=== PATIENT | female | born 1965 | race Caucasian/White ===

== ENCOUNTER 2020-10-27 12:17 | Emergency (ER) | payer BC ==
[2020-10-27] MEDS ORDERED: Ibuprofen 800 MG TAB ONE (13:14)
--- NOTE | 2020-10-27 13:29 | RAD ---
LEFT HIP 2 VIEWS: HISTORY: Fall. COMPARISON: None. FINDINGS: Small left acetabular osteophyte formation. The left obturator ring is intact. Left SI joint is int act. Proximal femur is without fracture. IMPRESSION: No acute displaced fracture. Mild degenerative changes. If the patient is acutely unable to bear weight, CT would be recommended. POS: HOME
--- NOTE | 2020-10-27 14:00 | CT ---
CT pelvis noncontrast HISTORY: Fall. Left hip injury. FINDINGS: Mild osteoarthritic changes of each hip. Cortex is intact. Femoral head contours are mainta ined. Small bone islands at the left femoral head. No acute fracture or dislocation. Within the partially visualized retroperitoneum, there is ill-defined fat stranding, most pronounced on the right superiormost images. Nonenlarged, nonspecific lymph nodes are also evident within the retroperitoneum. IMPRESSION : No acute osseous abnormalities are demonstrated. Subtle findings of inflammation within the partially visualized lower retroperitoneum: right lower qu adrant and aortoiliac levels. Correlate for causes of retroperitoneal inflammation.
== END 2020-10-27 14:25 | disposition home or self-care (01) ==
LOC: MADERS 12:17
DX: S80.01XA Contusion of right knee, initial encounter (principal); M25.552 Pain in left hip; E11.9 Type 2 diabetes mellitus without complications; F17.210 Nicotine dependence, cigarettes, uncomplicated; Z79.84 Long term (current) use of oral hypoglycemic drugs; Z79.899 Other long term (current) drug therapy; W01.0XXA Fall on same level from slipping, tripping and stumbling without subsequent striking against object, initial encounter
CPT/HCPCS: 72192

== ENCOUNTER 2021-12-06 20:58 | Emergency (ER) | payer BC, SELFPAY ==
[2021-12-07] MEDS ORDERED: diphenhydrAMINE 50 MG/ML VIAL ONE (00:01)
[2021-12-07] MEDS ORDERED: Sodium Chloride 0.9% 1,000 ML ONE (00:01)
[2021-12-07] MEDS ORDERED: Metoclopramide HCl 10 MG/2 ML VIAL ONE (00:01)
[2021-12-07 00:03] LABS: #Basophils 0.1 thou/uL (0.0-0.2); #Eosinphils 0.1 thou/uL (0.0-0.7); #Lymphocytes 0.9 thou/uL (1.20-3.40); #Monocytes 0.4 thou/uL (0.11-0.59); %Basophils 1.5 % (0.0-1.0); %Monocytes 5.6 % (0.0-10.0); %Neutrophils 77.9 % (42.0-75.0); Hypochromia SLIGHT = 6-15 cells (100X) (0-5/hpf); MDiff Complete? YES; Mean Corpuscular HGB CONC 30.5 g/dL (32.0-36.0); Mean Corpuscular Hemoglobin 22.2 pg (27.0-31.0); Mean Corpuscular Volume 72.9 fL (78.0-98.0); Mean Platelet Volume 7.6 fL (7.4-10.4); Microcytosis MODERATE=15-30 cells (100X) (0-5/hpf); Platelet Count 112 thou/uL (130-400); Polychromasia SLIGHT = 2-3 cells (100X) (0-2/hpf); RBC Distribution Width 13.7 % (11.5-14.5); Red Blood Cell (RBC) Count 4.51 mill/uL (4.20-5.40); White Blood Cell (WBC) Count 6.4 thou/uL (4.8-10.8)
[2021-12-07 00:15] LABS: ALT (SGPT) 16 U/L (8-55); AST (SGOT) 19 U/L (5-34); Albumin 4.3 g/dL (3.5-5.0); Alkaline Phosphatase 160 U/L (40-110); Anion Gap 16 mmol/L (10-20); BUN (Urea Nitrogen) 11 mg/dL (9.8-20.1); Bilirubin, Total 0.4 mg/dL (0.2-1.2); Calc. Creatinine Clearance 0 mL/min (70-130); Calcium 9.6 mg/dL (7.8-10.44); Carbon Dioxide 25 mmol/L (22-29); Chloride 101 mmol/L (98-107); Globulin 3.7 g/dL (2.4-3.5); Glucose 191 mg/dL (70-105); Potassium 4.1 mmol/L (3.5-5.1); Sodium 138 mmol/L (136-145)
[2021-12-07] MEDS ORDERED: Ketorolac Tromethamine 30 MG/ML VIAL ONE (01:21)
[2021-12-07 01:22] LABS: Bilirubin Negative (Negative); Blood, Urine Negative (Negative); Clarity Clear (Clear); Glucose, Urine (Dipstick) Negative (Negative); Ketone, Urine Negative (Negative); Leukocyte Negative (Negative); Nitrite Negative (Negative); Protein, Urine (Dipstick) Negative (Neg-Trace); Urobilinogen 0.2 mg/dL (Less than 2)
[2021-12-07] MEDS ORDERED: Meclizine HCl 25 MG TAB ONE (02:12)
== END 2021-12-07 02:25 | disposition home or self-care (01) ==
LOC: MADERS 20:58
DX: D50.9 Iron deficiency anemia, unspecified (principal); R42 Dizziness and giddiness; R51.9 Headache, unspecified; F17.210 Nicotine dependence, cigarettes, uncomplicated
CPT/HCPCS: 70450; 71046; 80053; 81003; 85025; 96374; 96375; J1200; J1885; J2765; J7050